=== PATIENT | male | born 1955 | race Caucasian/White ===

== ENCOUNTER → 2017-05-19 | Outpatient (CLI) | payer BC, MEDICARE ==
[~2017-05-19] MED LIST: AMLODIPINE BESYL5 MG PO; ATORVASTATIN CA10 MG PO; CITRACAL PO; ESCITALOPRAM OX20 MG PO; HYDROCODON-ACE1 EAC5 PO; IRON PO; LOVENOX40 MG/0.4 INJ; MIRAPEX1 MG PO; VALSARTAN-HCTZ1 EAC3 PO; VITAMIN B12 PO; WARFARIN SODIU7.5 MG PO; ZYRTEC10 M2 PO
--- NOTE | ~2017-05-19 | CR63 ---
[facility] A Service of [facility] RADIOLOGY TEXT RESULTS PATIENT: GREGG VILLARREAL LOCATION: [facility] : 51 UNIT #: [id number] AGE: [address]: Justice Mckee MD SEX: M ORDER DR: [id number] [facility] [address] [place], [place] [address] [id number] O MR#: [id number] Acc #: [id number] NAME: GREGG VILLARREAL : 1955 SEX: M STUDY DATE/TIME: 05/19/2017 10:35 UNIT: [facility] ROOM: STUDY DESCRIPTION: CR Chest 2 View Attending Physician: Justice Mckee M.D. Referring Physician: Justice Mckee M.D. Ordering Physician: Justice Mckee M.D. Primary Care Physician: Steven Alarcon M.D. MEDICAL IMAGING REPORT This report is preliminary unless electronic signature is present EXAM Chest 05/19/2017 HISTORY 61-year-old male preop clearance revision of right total knee arthroplasty. COMPARISON None FINDINGS Two-view chest demonstrates normal heart size. Hilar structures and mediastinal contours are preserved. Bilateral lungs are expanded and clear. IMPRESSION Negative chest. Dictated by... Hermelindo Goel M.D. THIS IS AN ELECTRONICALLY VERIFIED REPORT Hermelindo Goel M.D. at 05/20/2017 7:04 AM JOE/sumit TD: 05/19/2017 22:58 JOB #: [id number] MEDICAL IMAGING REPORT Page 1 of 1 COPY
--- NOTE | ~2017-05-19 | CO ---
Unit #: [id number] #: [id number] Patient: GREGG VILLARREAL [id number] [address] [address] [id number] O MR#: [id number] NAME: GREGG VILLARREAL ROOM: Age: 61 Sex: M Admission Date: 05/19/2017 : 1955 Attending Physician: Justice Mckee M.D. Primary Care Physician: Steven Alarcon M.D. CONSULTATION REPORT REASON FOR CONSULTATION Preoperative medical evaluation prior to right total knee revision scheduled by Dr. Mckee for 06/02/2017. HISTORY OF PRESENT ILLNESS The patient is a 61-year-old male, who presents to preprocedural screening for the reason as indicated above. The patient has no complaints at the time of this interview today. He denies history of myocardial infarction, congestive heart failure, stroke, TIA, diabetes, or kidney problems other than a history of kidney stones. He denies shortness of air, upper chest, arm, back, neck, and/or jaw pain. Denies palpitations, lightheadedness, dizziness, presyncope, or syncope. The patient has a history of CRISTAL and is compliant with CPAP. PAST MEDICAL HISTORY 1. Osteoarthritis. 2. Obesity with BMI of 35. 3. Tobacco use. 4. EtOH use. 5. CRISTAL, on CPAP. 6. Anxiety/depression. 7. Bronchitis, completing treatment. 8. Hypertension. 9. History of prostate cancer. 10. Questionable neuropathy with numbness of fingers and two toes. 11. Hyperlipidemia. 12. Allergic rhinitis. 13. GERD. 14. Kidney stones. 15. History of DVT x1 twenty years ago. 16. And history of gout. PAST SURGICAL HISTORY 1. Right knee arthroscopy x3. 2. Left knee arthroscopy x5. 3. Left total knee. 4. Right shoulder surgery x3. 5. Prostatectomy in 2008. 6. Neck fusion x2. 7. Back fusion x4. 8. Tonsillectomy. Please note, the patient denies a personal or family history of Unit #: [id number] #: [id number] Patient: GREGG VILLARREAL complications to anesthesia. ALLERGIES Denies latex allergies. Allergic to Phos-Flur; morphine and codeine cause itching and swelling. CURRENT MEDICATIONS 1. Valsartan hydrochlorothiazide 320-25 mg tablet one p.o. daily. 2. Amlodipine besylate 5 mg p.o. daily. 3. Atorvastatin calcium 10 mg p.o. daily. 4. Mirapex 1 mg p.o. at bedtime. 5. Escitalopram oxalate 20 mg p.o. daily. 6. Testosterone injection 2.75 mg every 14 to 20 days. 7. Citracal 630 mg p.o. daily. 8. Ferrous sulfate 65 mg p.o. daily. 9. Zyrtec 10 mg p.o. daily. 10. Vitamin B12 a 1000 mcg p.o. daily. SOCIAL HISTORY He has smoked half a pack of cigarettes daily for the past 25 years with multiple attempts to quit smoking. He will drink beer and vodka in the amount of approximately 10 drinks per week. He denies illicit drug use. FAMILY HISTORY Per review of Dr. Mckee's office note, unknown. REVIEW OF SYSTEMS The patient is recovering from a recent bout of bronchitis for which he is on antibiotic therapy. He has completed a course of prednisone prescribed by his primary care provider. He reports history of neuropathy of his fingers and two toes. A 10-point review of systems is conducted and otherwise negative except as indicated under history of present illness above. PHYSICAL EXAMINATION GENERAL: A 61-year-old male, awake, alert, and in no acute distress. VITAL SIGNS: Temperature 98.8, heart rate 104, respiratory rate 16, blood pressure 154/89, and oxygen saturation 97% on room air. HEENT: Atraumatic, normocephalic. Sclerae anicteric. No discharge from eyes, ears, or nares. LYMPHATICS: No preauricular, postauricular, tonsillar, submental, anterior-posterior, or cervical adenopathy. ENDOCRINE: No thyromegaly, thyroid nodules, or tenderness. RESPIRATORY: Clear to auscultation in all christine bilaterally without wheezes, rhonchi, or rales. CARDIOVASCULAR: S1 and S2. Regular rate and rhythm without murmur or rub. GI: Bowel sounds are positive x4. Soft, nontender, and nondistended. EXTREMITIES: No edema, cyanosis, or clubbing. MUSCULOSKELETAL: Strength 5/5 in all extremities bilaterally to flexion and extension. NEUROLOGIC: Alert and oriented x3. Speech clear. Follows directions for examination. Cranial nerves II through XII are grossly intact. DIAGNOSTIC STUDIES LABORATORY RESULTS: WBC 10.6; hemoglobin 13.5; hematocrit 40.5; platelet count 292,000; and sedimentation rate 10. Sodium 138, potassium 4.5, Unit #: [id number] #: [id number] Patient: GREGG VILLARREAL chloride 98, CO2 of 31, glucose 100, BUN 26, creatinine 1.4, calcium 9.9, AST 23, ALT 26, alkaline phos 62, bilirubin total 0.8, total protein 6.7, and albumin 4.0. C-reactive protein 0.9. Blood type A negative. Urinalysis, negative with neither microscopic nor culture indicated. PT 10.0, INR 0.9. CARDIOLOGY: Date of study 04/01/2017; sinus rhythm, atrial premature complex, probable left atrial abnormality, right bundle-branch block, LVH, significant ECG contour changes. IMAGING STUDIES: Two-view chest x-ray report pending at this time. IMPRESSION The patient is a 61-year-old male, who presents to preprocedural screening for, 1. Preoperative medical evaluation prior to right total knee revision scheduled by Dr. Mckee for 06/02/2017. The patient's Roque revised cardiac risk index is equal to 0.4%. This represents the patient's perioperative risk of fatal or nonfatal myocardial infarction, cardiopulmonary arrest, pulmonary edema, and/or arrhythmia. This has been discussed in detail with the patient and he wishes to proceed with surgery as scheduled at this time. 2. Obesity with BMI of 35. Weight loss is recommended. 3. Tobacco use. Smoking cessation is advised. 4. ETOH use. The patient states he has just completed 30 days off alcohol for a 30-day weight loss program and had no signs or symptoms of withdrawal at that time. 5. Obstructive sleep apnea, compliant with CPAP. The patient has been advised to bring his CPAP from home for use on home settings postoperatively and he has verbalized understanding this information. 6. Anxiety and depression, stable. 7. Recent bronchitis, on treatment. The patient states that if he is not well upon completion of this current course of antibiotics, he will follow up with his primary care provider. 8. Hypertension. Blood pressure is stable. Continue current medications and adjust accordingly. 9. Osteoarthritis. 10. History of prostate cancer. We will monitor for postoperative urinary retention. 11. 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 Fall precautions. The patient will work with PT and OT. 12. Hyperlipidemia. 13. Allergic rhinitis. 14. Gastroesophageal reflux disease. 15. History of kidney stones. 16. History of deep venous thrombosis x1 twenty years ago. 17. History of gout. Thank you for allowing us to participate in care of this patient. We will gladly follow him for postoperative medical management pending order of Dr. Mckee. Dictated by... Izzy Bang A.P.R.N. for Brian Velásquez/steffen Unit #: [id number] #: [id number] Patient: GREGG VILLARREAL TD: 05/20/2017 11:27 JOB #: [id number] CONSULTATION REPORT Page 1 of 1 X Izzy Bang FINANCE CONTROLLER X CONSULTATION REPORT
[2017-05-19 10:16] LABS: HEMATOCRIT 40.5 % (38.0-50.0); HEMOGLOBIN 13.5 gm/dL (13.0-16.0); MEAN CELL VOLUME 95.7 FL (83-96); MEAN CORPUSCULAR HEMOGLOBIN 31.8 PG (28-34); MEAN CORPUSCULAR HGB CONC 33.3 g/dL (30-36); MEAN PLATELET VOLUME 7.5 FL (6.5-11.5); RED BLOOD COUNT 4.23 X10e (3.90-5.60); RED CELL DISTRIBUTION WIDTH 14.9 % (11.0-15.5); WHITE BLOOD COUNT 10.6 X10e3 (4.0-10.5)
[2017-05-19 10:18] LABS: URINE APPEARANCE CLEAR; URINE BILIRUBIN NEG (NEG); URINE BLOOD NEG (NEG); URINE COLOR YELLOW; URINE GLUCOSE NEG (NEG); URINE KETONE NEG (NEG); URINE LEUKOCYTE ESTERASE NEG (NEG); URINE NITRATE NEG (NEG); URINE PH 7.5 (5-8); URINE PROTEIN NEG (NEG); URINE SPECIFIC GRAVITY 1.013 (1.003-1.035); URINE UROBILINOGEN 0.2 MG/DL (NEG)
[2017-05-19 10:20] LABS: CULTURE INDICATED? NO
[2017-05-19 10:30] LABS: INR 0.9
[2017-05-19 10:50] LABS: BILIRUBIN,TOTAL 0.8 mg/dL (0.2-2.0); BUN/CREATININE RATIO 18.57; CALCIUM SERUM 9.9 mg/dL (8.4-10.2); CREATININE SERUM 1.4 mg/dL (0.6-1.4); GLOM FILT RATE Estimated 53.1 mL/min (>60); POTASSIUM 4.5 mmol/L (3.5-5.1); PROTEIN TOTAL SERUM 6.7 g/dL (6.0-8.3)
== END | disposition home or self-care (01) ==
LOC: CAMB 09:21 → EDSTATUS 10:00 → CAMB 10:00
PROVIDERS: Orthopaedic Surgery
DX: Z01.818 Encounter for other preprocedural examination (principal); T84.032A Mechanical loosening of internal right knee prosthetic joint, initial encounter; I10 Essential (primary) hypertension; K21.9 Gastro-esophageal reflux disease without esophagitis; Z85.9 Personal history of malignant neoplasm, unspecified; Z87.01 Personal history of pneumonia (recurrent); Z79.01 Long term (current) use of anticoagulants
CPT/HCPCS: 36415; 71020; 80053; 81003; 85027; 85610; 85652; 86140; 86850; 86900; 86901; 87070

== ENCOUNTER → 2017-05-21 | Outpatient (CLI) | payer BC, MEDICARE ==
--- NOTE | ~2017-05-21 | US84 ---
[id number] [facility] [address] [place], [place] [address] [id number] O MR#: [id number] Acc #: [id number] NAME: GREGG VILLARREAL : 1955 SEX: M STUDY DATE/TIME: 05/21/2017 9:11 UNIT: [facility] ROOM: STUDY DESCRIPTION: US LE Veins Complete Jenaro Stdy Attending Physician: Justice Mckee M.D. Referring Physician: Justice Mckee M.D. Ordering Physician: Justice Mckee M.D. Primary Care Physician: Steven Alarcon M.D. MEDICAL IMAGING REPORT This report is preliminary unless electronic signature is present EXAM Bilateral lower extremity duplex Doppler venous ultrasound COMPARISON None. HISTORY 61-year-old male with bilateral lower extremity edema for 3 weeks. History of remote left lower extremity deep venous thrombosis. FINDINGS Right common femoral, greater saphenous, superficial femoral, deep femoral and popliteal veins are fully compressible with internal color flow. Color flow is demonstrated within the right posterior tibial, peroneal, anterior tibial veins. Posterior tibial vein appears fully compressible. Left posterior tibial vein appears occluded with somewhat retractile-appearing thrombus. There is no other evidence of deep venous thrombosis in the left lower extremity. IMPRESSION 1. No evidence of deep venous thrombosis right lower extremity. 2. There is an occlusive deep venous thrombosis involving the posterior tibial vein on the left. This is of uncertain acuity. The thrombus is not very expansile and could possibly be chronic. Brittani, Automotive Detailer in Dr. Mckee's office, was notified of the findings of left lower extremity DVT and she will relay these findings to the practitioner caring for this patient. Notification was performed May 21, 2017 at 02:35 p.m. Dictated by... Humble Castillo M.D. THIS IS AN ELECTRONICALLY VERIFIED REPORT Humble Castillo M.D. at 05/25/2017 10:13 PM BLM/pcl TD: 05/21/2017 21:29 JOB #: [id number] MEDICAL IMAGING REPORT Page 1 of 1 COPY
== END | disposition home or self-care (01) ==
LOC: CNIV 08:41
DX: Z01.810 Encounter for preprocedural cardiovascular examination (principal); M79.604 Pain in right leg; M79.605 Pain in left leg; M79.89 Other specified soft tissue disorders; I82.442 Acute embolism and thrombosis of left tibial vein
CPT/HCPCS: 93970

== ENCOUNTER 2017-06-02 08:51 | Inpatient (IN) | payer BC, MEDICARE ==
[~2017-06-02] VITALS: Ht 188 cm; Wt 121.6 kg
--- NOTE | ~2017-06-02 | DS ---
Unit #: [id number] #: [id number] Patient: GREGG VILLARREAL [id number] [address] [place], [place] [address] [id number] I MR#: [id number] NAME: GREGG VILLARREAL ROOM: 447 Age: 61 Sex: M Admission Date: 06/02/2017 : 1955 Discharge Date: 06/04/2017 Attending Physician: Justice Mckee M.D. Primary Care Physician: Steven Alarcon M.D. DISCHARGE SUMMARY ADMITTING PHYSICIAN Dr. Mckee ADMITTING DIAGNOSIS Right total knee loose tibia. HOSPITAL COURSE On 06/02/2017, Mr. Villarreal underwent a right total knee revision. He tolerated the procedure well. He was transported to the 4th floor where he underwent physical therapy, medical management and anticoagulation therapy. He is doing well and is ready to be discharged. DISPOSITION Stable. DISCHARGE Discharged home with home-health to follow. MEDICATIONS ON DISCHARGE Include his routine home medications. In addition, add Coumadin 7.5 mg p.o. daily, Lovenox 40 mg subcu daily x5 days. FOLLOWUP AND INSTRUCTIONS Mr. Villarreal is going to be discharged home with [facility] home health to follow. The patient has history of DVTs, so he is going to be treated with Coumadin as well as Lovenox. PT-INR is to be drawn in the morning. Please call those results in at [phone], attention: Virgil. Skin jie are to be discontinued 2 weeks postop. Please apply Steri-Strips 1/4 of an inch apart, white ALEJANDRO hose to be worn during the day and can be removed in the evening. Patient can shower in one week and can drive after seen by Dr. Mckee at their 6-week postop appointment. Physical therapy is to be done for active range of motion, strengthening and progressive ambulation. Patient will be on a walker for 4 weeks and a cane for an additional 2 weeks, follow-up appointment with Dr. Mckee in 6 weeks, please call our office for that appointment, date and time. Dictated by... Harika Velasquez/bong Unit #: [id number] #: [id number] Patient: GREGG VILLARREAL TD: 06/04/2017 21:29 JOB #: [id number] DISCHARGE SUMMARY Page 1 of 1 X Lisa Dos Santos DISCHARGE SUMMARY
--- NOTE | ~2017-06-02 | EKG ---
PATIENT: GREGG VILLARREAL UNIT #: [id number] Ventricular Rate: 69 BPM Atrial Rate: 69 BPM P-R Interval: 150 ms QRS Duration: 140 ms Q-T Interval: 422 ms QTC Calculation(Bezet): 452 ms P Moon: 63 degrees Calculated R Moon: -34 degrees Calculated T Moon: 28 degrees Diagnosis Line: Normal sinus rhythm Diagnosis Line: Left axis deviation Diagnosis Line: Right bundle branch block Diagnosis Line: Minimal voltage criteria for LVH, may be normal Diagnosis Line: variant Diagnosis Line: Abnormal ECG Diagnosis Line: No previous ECGs available Diagnosis Line: Confirmed by MARCOS GODDARD MD ([id number]) on 06/04/2017 Diagnosis Line: 7:32:52 PM INTERPRETING MD: NITZA VIRGEN
--- NOTE | ~2017-06-02 | OR ---
Unit #: [id number] #: [id number] Patient: GREGG VILLARREAL [id number] [address] [place], [place] [address] [id number] I MR#: [id number] NAME: GREGG VILLARREAL ROOM: [facility] Date of Procedure: 06/02/2017 Admission Date: 06/02/2017 Surgeon: Justice Mckee M.D. : 1955 Attending Physician: Justice Mckee M.D. Primary Care Physician: Steven Alarcon M.D. OPERATIVE REPORT PREOPERATIVE DIAGNOSIS Loose and painful right total knee tibial component. POSTOPERATIVE DIAGNOSIS Loose and painful right total knee tibial component. PROCEDURE PERFORMED Revision of right total knee tibial component and poly insert. ASSISTANTS Levon and Corina. ANESTHESIA Adductor canal block plus general. ESTIMATED BLOOD LOSS 200 mL. DESCRIPTION OF PROCEDURE The patient was brought to the holding room, given 3 g of Kefzol. This will be continued postop, but discontinued within 23 hours the start time of surgery. He was then given an adductor canal block. He was brought back to the operating room, given a general anesthetic. A tourniquet was placed around the right thigh. The right leg was prepped and draped in a sterile fashion. After this was done, a straight anterior skin incision was made through the old incision. Subcutaneous dissected away and a medial arthrotomy performed. Clear fluid was encountered. This was cultured. We then debrided scar tissue from the medial and lateral gutters in the suprapatellar pouch. We subluxed the patella laterally, dissected around to the posterior medial corner subperiosteally and subluxed the tibia anteriorly out from underneath the femur by externally rotating. The femoral component had been inspected, it was not loose. The tibial component did show loosening. The polyethylene was removed and then the tray was removed quite easily. All the excess cement was removed. We then reamed femur up to 17 and did a trial reduction with a triathlon tibial baseplate, size 7 and a 15 mm x 50 mm cemented stem. When we reduced the knee, we found we needed a 13 mm insert, so these components were opened. The canal was brushed, plugged, irrigated, and dried. All the scar tissue and membrane was debrided from the tibia. The cement was mixed. The knee was irrigated and dried. A size 7 tray with a 50 mm x 15 mm diameter cemented stem was cemented into appropriate rotation. Once this was hardened, it was judged that the 13 mm insert was Unit #: [id number] #: [id number] Patient: GREGG VILLARREAL the appropriate thickness, so this was opened and applied to the tibial tray. The ropivacaine mixture was injected. The tourniquet was released. The knee was irrigated with Betadine and then bacitracin and then closed using 0 Ethibond in the arthrotomy, 0 and 2-0 Vicryl in the subcutaneous, and jie in the skin. drilling assistant, Lisa Dos Santos, was present throughout the entire case. Dictated by... Brian Garcia/steffen TD: 06/02/2017 23:38 JOB #: [id number] OPERATIVE REPORT Page 1 of 1 X Justice Mckee MD X PROCEDURE OPERATIVE NOTE
[~2017-06-02 08:51] MED LIST changes: -HYDROCODON-ACE1 EAC5 PO; -LOVENOX40 MG/0.4 INJ; -WARFARIN SODIU7.5 MG PO
[2017-06-02 09:55] LABS: INR 0.9
[2017-06-03 03:38] LABS: BASOPHIL% 0.3 % (0-2.5); EOSINOPHIL# 0.1 X10e3 (0-0.7); EOSINOPHIL% 0.7 % (0.0-7.0); HEMATOCRIT 31.8 % (38.0-50.0); HEMOGLOBIN 10.8 gm/dL (13.0-16.0); LYMPHOCYTE# 2.6 X10e3 (1.0-3.5); LYMPHOCYTE% 26.5 % (17.0-45.0); MEAN PLATELET VOLUME 6.8 FL (6.5-11.5); MONOCYTE# 0.6 X10e3 (0-1.0); MONOCYTE% 6.4 % (3.0-12.0); NEUTROPHIL# 6.4 X10e3 (1.5-7.1); NEUTROPHIL% 66.1 % (40-75); PLATELET COUNT 205 X10e3 (140-420); RED BLOOD COUNT 3.28 X10e (3.90-5.60); RED CELL DISTRIBUTION WIDTH 15.4 % (11.0-15.5); WHITE BLOOD COUNT 9.7 X10e3 (4.0-10.5)
[2017-06-03 03:39] LABS: DIFF IND NO
[2017-06-03 03:52] LABS: INR 0.9; PROTHROMBIN TIME (PATIENT) 10.3 SECONDS (10.0-11.7)
[2017-06-03 04:10] LABS: BUN/CREATININE RATIO 24.61; CALCIUM SERUM 8.7 mg/dL (8.4-10.2); CREATININE SERUM 1.3 mg/dL (0.6-1.4); GLOM FILT RATE Estimated 58.1 mL/min (>60); MAGNESIUM 1.7 mg/dL (1.6-3.0); POTASSIUM 5.1 mmol/L (3.5-5.1)
[2017-06-04 02:38] LABS: HEMATOCRIT 34.2 % (38.0-50.0); HEMOGLOBIN 11.5 gm/dL (13.0-16.0)
[2017-06-04 02:56] LABS: PROTHROMBIN TIME (PATIENT) 11.1 SECONDS (10.0-11.7)
[2017-06-04 03:07] LABS: CALCIUM SERUM 9.1 mg/dL (8.4-10.2); GLOM FILT RATE Estimated 79.8 mL/min (>60); MAGNESIUM 1.8 mg/dL (1.6-3.0); POTASSIUM 4.1 mmol/L (3.5-5.1)
[2017-06-04] MEDS ORDERED: HYDROCODON-ACE1 EAC5 PO (11:21)
[2017-06-04] MEDS ORDERED: LOVENOX40 MG/0.4 INJ (11:22)
[2017-06-04] MEDS ORDERED: WARFARIN SODIU7.5 MG PO (11:24)
== END 2017-06-04 13:00 | disposition home health service (06) | DRG 467 ==
LOC: CSUR 08:51 → CPACUOF 10:01 → CSUR 11:00 → CPACUOF 11:43 → C4B 11:43 → CPACUOF 21:00 → C4B 21:00
PROVIDERS: Nurse Practitioner; Orthopaedic Surgery
PROC: 0SRV0J9 Replacement of Right Knee Joint, Tibial Surface with Synthetic Substitute, Cemented, Open Approach (ICD-10-PCS; 2017-06-02)
PROC: 0SPV0JZ Removal of Synthetic Substitute from Right Knee Joint, Tibial Surface, Open Approach (ICD-10-PCS; principal; 2017-06-02 11:00)
DX: T84.032A Mechanical loosening of internal right knee prosthetic joint, initial encounter (principal); D62 Acute posthemorrhagic anemia; I10 Essential (primary) hypertension; I82.442 Acute embolism and thrombosis of left tibial vein; Y79.1 Therapeutic (nonsurgical) and rehabilitative orthopedic devices associated with adverse incidents; K21.9 Gastro-esophageal reflux disease without esophagitis; F17.200 Nicotine dependence, unspecified, uncomplicated; E66.9 Obesity, unspecified; Z68.35 Body mass index [BMI] 35.0-35.9, adult; Z72.89 Other problems related to lifestyle; G47.33 Obstructive sleep apnea (adult) (pediatric); J40 Bronchitis, not specified as acute or chronic; F32.9 Major depressive disorder, single episode, unspecified; F41.9 Anxiety disorder, unspecified; E78.5 Hyperlipidemia, unspecified; Z85.46 Personal history of malignant neoplasm of prostate; Z87.442 Personal history of urinary calculi; Z79.01 Long term (current) use of anticoagulants; Z88.5 Allergy status to narcotic agent
CPT/HCPCS: 80048; 83735; 85014; 85018; 85025; 85610; 87070; 87075; 87205; 93005; 94010; 94760; 97110; 97116; 97161; 97166; 97530; 97535; C1776; G8978-GP; G8979-GP; G8980-GP; G8987-GO; G8988-GO; G8989-GO; J0171; J0690; J0735; J1100; J1170; J1650; J1885; J2250; J2405; J2795; J3010